=== PATIENT | female | born 1975 | race Caucasian/White ===

== ENCOUNTER → 2019-09-05 10:10 | Outpatient (BNVA) | payer OTHER, SELFPAY | PROVIDERS: Family Provider Family Medicine; PCP Family Medicine; Visit Provider Nurse Practitioner Women's Health | DX: R87.610 Atypical squamous cells of undetermined significance on cytologic smear of cervix (ASC-US) (principal); R87.810 Cervical high risk human papillomavirus (HPV) DNA test positive; Z01.419 Encounter for gynecological examination (general) (routine) without abnormal findings | CPT/HCPCS: 88175 ==

== ENCOUNTER → 2019-10-16 14:00 | Outpatient (BNVA) | payer OTHER, SELFPAY | PROVIDERS: Family Provider Family Medicine; PCP Family Medicine; Visit Provider Obstetrics & Gynecology | DX: R87.610 Atypical squamous cells of undetermined significance on cytologic smear of cervix (ASC-US) (principal); R87.810 Cervical high risk human papillomavirus (HPV) DNA test positive | CPT/HCPCS: 81025; 88305 ==

== ENCOUNTER → 2019-12-22 09:19 | Outpatient (BNVA) | payer OTHER, SELFPAY | PROVIDERS: Family Provider Family Medicine; PCP Family Medicine; Visit Provider Nurse Practitioner Family | DX: R30.0 Dysuria (principal) | CPT/HCPCS: 81000 ==

== ENCOUNTER 2020-06-25 02:08 | Emergency (ER) | payer OTHER, SELFPAY ==
[2020-06-25] VITALS (11 sets, daily range): BP systolic 97–123; BP diastolic 56–76; PULSE 66–86; RESP 15–18; TEMP 36.6; O2SAT 95–99; BMI 36.8
--- NOTE | 2020-06-25 02:30 | CTR_ITS ---
PROCEDURE INFORMATION: Exam: CT Head Without Contrast Exam date and time: 06/25/2020 2:47 AM Age: 44 years old Clinical indication: Injury or trauma; Blunt trauma (contusions or hematomas); Patient HX: Syncope with fall. Epistaxis. Patient is unsure of what she hit her head on. ; Additional info: Loc, fall, nasal injury TECHNIQUE: Imaging protocol: Computed tomography of the head without contrast. Radiation optimization: All CT scans at this facility use at least one of these dose optimization techniques: automated exposure control; mA and/or kV adjustment per patient size (includes targeted exams where dose is matched to clinical indication); or iterative reconstruction. COMPARISON: No relevant prior studies available. RADIATION DOSE METRICS: Total DLP (mGy-cm): 769.93 FINDINGS: Brain: No acute intracranial hemorrhage or mass effect. No definite acute infarct by CT. MRI could be more sensitive/specific for detection, as clinically directed. Cerebral ventricles: Ventricle size is normal for age. Bones/joints: No definite acute skull fracture. Paranasal sinuses: Included paranasal sinuses are essentially clear. Mastoid air cells: No significant acute finding. CT/CT head wo con* [id number] IMPRESSION: 1. No acute intracranial hemorrhage or mass effect. 2. No definite acute infarct by CT, see above. 3. Other findings discussed above. Radiation Dose CTDIVOL = (mGy): DLP = 769.93 (mGy-cm)
--- NOTE | 2020-06-25 02:30 | ECG_ITS ---
[facility] Test Date: 2020-06-25 Pat Name: Eugenia Land Department: Room: Gender: Female Reception Manager: : 1975 Requested By: Court Nogueira Order Number: [id number] Alfonzo MD: George Edwards M.D. Measurements Intervals [place] Rate: 85 P: 8 VT: 160 QRS: 56 QRSD: 94 T: 58 QT: 310 QTc: 370 Interpretive Statements SINUS RHYTHM NONSPECIFIC T-WAVE ABNORMALITY No previous ECG available for comparison Electronically Signed On 06-25-2020 19:15:13 CDT by George Edwards M.D. [id number] f
--- NOTE | 2020-06-25 02:33 | CTR_ITS ---
PROCEDURE INFORMATION: Exam: CT Cervical Spine Without Contrast Exam date and time: 06/25/2020 2:47 AM Age: 44 years old Clinical indication: Injury or trauma; Blunt trauma; Patient HX: Syncope with fall. Epistaxis. Patient is unsure of what she hit her head on. ; Additional info: Fall, neck pain TECHNIQUE: Imaging protocol: Computed tomography images of the cervical spine without contrast. Radiation optimization: All CT scans at this facility use at least one of these dose optimization techniques: automated exposure control; mA and/or kV adjustment per patient size (includes targeted exams where dose is matched to clinical indication); or iterative reconstruction. COMPARISON: No relevant prior studies available. RADIATION DOSE METRICS: Total DLP (mGy-cm): 659.7 FINDINGS: Bones/joints: On axial CT images, no definite acute fracture is visible. Sagittal and coronal reconstructions show no acute fracture or subluxation. Moderate to severe facet joint arthritis at several levels. Discs/Spinal canal/Neural foramina: No definite/significant disc herniation by CT, MRI could be more sensitive if clinically indicated. Lungs: No significant acute finding in the upper lungs. CT/CT cervical spin wo con* [id number] IMPRESSION: 1. No definite acute fracture or subluxation by CT. 2. Other findings discussed above. Radiation Dose CTDIVOL = (mGy): DLP = 659.7 (mGy-cm)
--- NOTE | 2020-06-25 02:40 | W.ED.SYNCOPE ---
HPI - Syncope General: Chief Complaint: Syncope Stated Complaint: syncope, hit head Time Seen by Provider: 06/25/20 02:09 Source: patient Mode of arrival: EMS Limitations: no limitations History of Present Illness: HPI narrative: 44-year-old female woke up suddenly and of the night, with nausea and sweats, went on to have 2 episodes of profuse vomiting and diarrhea. After the second episode she became very weak and dizzy, and passed out in the bathroom. She woke up with a bloody nose, not sure if she had hit her head or face on the bathtub. Currently she is get a headache and some neck pain. She has been having some stomachache and nausea after eating intermittently for several weeks now, but not to this extent. No sick contacts. Did not eat anything unusual last night. Currently she is got mild diffuse abdominal pain, especially over her upper abdomen. No dysuria. complaint: loss of consciousness Onset (ago): hour(s) Prodromal symptoms: lightheaded, diaphoresis and nausea/vomiting Context: other (After second episode of vomiting and diarrhea) Associated symptoms: Reports abdominal pain, headache(s), lightheadedness and nausea; Deny chest pain Review of Systems General: Reports: 10 or more systems reviewed and unremarkable except in HPI and below Const: Reports: chills and diaphoresis Eyes: Denies: change in vision ENMT: Denies: throat pain or odynophagia Card: Reports: lightheadedness and syncope; Denies: chest pain, palpitations or irregular heart rhythm Resp: Denies: dyspnea, productive cough or pain on inspiration GI: Reports: abdominal pain, nausea, vomiting, diarrhea and GI cramping : Denies: difficulty voiding, dysuria or urinary frequency Musc: Reports: neck pain; Denies: extremity pain, extremity swelling or joint pain Skin/Breast: Denies: rash, pruritus or erythema Neuro: Reports: headache(s); Denies: numbness in extremities or weakness in extremities Endo: Denies: polyuria, polydipsia or tired all the time Mark/Lymph: Denies: easy bruising or easy bleeding All/Imm: Denies: urticaria or throat swelling PFS ED PFSH: Medical History (Updated 06/25/20 @ 06:[address] Nogueira MD) No pertinent past medical history neghx: htn,dm,thyroid,dvt/pe Surgical History H/O section (2003) H/O hernia repair (2016) left inguinal H/O oral surgery (1998) Family History Family/Other Diabetes Maternal great aunt Thyroid cancer Maternal great aunt Heart disease Paternal uncle Mother Hypertension Father Hypertension Heart disease Grandmother Hypertension Maternal grandmother Paternal grandmother Grandfather Hypertension Paternal grandfather Maternal grandfather Heart disease Paternal grandfather Social History Additional social history: - Tobacco use: daily Alcohol use:denies Drug use:denies Female Reproductive History: Date of last menstrual period: 05/27/20 Physical Exam Const: COMMON NORMALS: patient oriented x3 and alert GENERAL APPEARANCE: cooperative, well developed, ill appearing and well hydrated; not in distress, not lethargic, not frail appearing and not diaphoretic ORIENTATION/CONSCIOUSNESS: Yes oriented to person and Yes oriented to place; not lethargic HENMT: FACE & SINUS: face symmetric NOSE: Normal septum present, Epistaxis present (dried blood in b/l nares) and Other nasal findings present (mild bruising over nasal bridge); no Nasal discharge present Eye: COMMON NORMALS: Equal, round and reactive pupils present, EOMs intact bilaterally, conjunctivae normal and no scleral icterus CONJUNCTIVA: Yes conjunctivae normal PUPIL: Yes Equal, round and reactive pupils present Neck/C-Spine: CERVICAL SPINE: No cervical ROM abnormal and Yes Paracervical muscle tenderness Resp: COMMON NORMALS: normal respiratory effort, No retractions and clear to auscultation bilaterally EFFORT & INSPECTION: Yes able to speak in complete sentences, No labored and No Actively coughing AUSCULTATION: clear to auscultation bilaterally Cardio: COMMON NORMALS: regular rate, regular rhythm, S1 normal heart sound present and S2 normal heart sound present RATE: regular rate RHYTHM: regular rhythm HEART SOUNDS: S1 normal heart sound present and S2 normal heart sound present GI: COMMON NORMALS: Soft to palpation INSPECTION: Yes normal to inspection AUSCULTATION: Yes Hyperactive bowel sounds present PALPATION: Yes Soft to palpation, Yes Tenderness to palpation present (GI) (epigastric) Details: LUQ and RUQ, No Splenomegaly present, No Hernia present and No Pulsatile mass present : COMMON NORMALS: Yes no CVA tenderness BLADDER/KIDNEY EXAM: Yes no CVA tenderness EXTERNAL FEMALE EXAM: No Hernia present Back/Pelvis: COMMON NORMALS: no CVA tenderness and thoracic and lumbar spine normal to inspection Neuro: COMMON NORMALS: patient oriented x3, CN's II-XII intact bilaterally, moves all extremities and no focal motor deficits SENSORIUM/ORIENTATION: Yes alert, Yes oriented to person, Yes oriented to place and No lethargic Skin: COMMON NORMALS: no rashes or lesions noted, no wounds, turgor normal, no jaundice and no petechiae GENERAL SKIN EXAM: no rashes or lesions noted, turgor normal and pallor Course Vital Signs: Vital signs: Vital Signs Temperature 97.9 F 06/25/20 02:13 Pulse Rate 72 06/25/20 06:53 Respiratory Rate 18 06/25/20 06:53 Blood Pressure 97/63 06/25/20 06:53 Pulse Oximetry 98 06/25/20 06:53 MDM - Syncope MDM Narrative: Medical decision making narrative: 44-year-old female had acute onset vomiting and diarrhea in the middle of the night, passed out in the bathroom after the second episode. CT head and C-spine negative for any acute injury Diarrheal disease/enteritis on CT abdomen pelvis, otherwise no acute inflammatory process. No acute UTI. Lactic acid normal. Tolerating p.o. liquids. Prescribed Levsin and Zofran ODT to take as needed Strict warnings to return immediately to the ER if she develop worsening pain, fever, or if she was unable to keep down liquids. Lab Data: Labs: Lab Results 06/25/20 06/25/20 06/25/20 Range/Units 02:38 02:38 03:58 WBC 16.8 H (4.0-10.0) 10^3/ uL RBC 4.41 (4.1-5.3) 10^6/u L Hgb 13.8 (11.5-15.3) g/dL Hct 42.2 (37.0-47.0) % MCV 95.7 (81-99) fL MCH 31.3 (28.0-34.0) pg MCHC 32.7 (30.0-36.0) g/dL RDW 11.9 L (12.1-15.1) % Plt Count 229 (130-400) 10^3/c mm MPV 9.9 (7.4-10.4) fL Neut % (Auto) 86.0 % Lymph % (Auto) 5.6 % [place] % (Auto) 7.2 % Eos % (Auto) 0.4 % Baso % (Auto) 0.5 % Neut # (Auto) 14.47 H (1.8-7.7) 10^3/u L Lymph # (Auto) 1.0 (0.8-4.8) 10^3/u L [place] # (Auto) 1.2 H (0.2-0.9) 10^3/u L Eos # (Auto) 0.1 (0.0-0.8) 10^3/u L Baso # (Auto) 0.1 (0.0-0.1) 10^3/u L Nucleated RBC % (a uto) 0 % Nucleated RBCs # 0.0 /100WBC Sodium 140 (136-145) mmol/L Potassium 3.9 (3.5-5.1) mmol/L Chloride 107 (98-107) mmol/L Carbon Dioxide 24 (22-29) mmol/L Anion Gap 12.9 (5-19) BUN 16 (6-20) mg/dL Creatinine 0.6 (0.5-0.9) mg/dL GFR Calculation 108.1 (90-130) mL/min Glucose 112 (65-115) mg/dL Calculated Osmolal ity 292 (285-295) mOsm/k g Lactate (0.5-2.2) mmol/L Calcium 8.3 L (8.5-10.5) mg/dL Total Bilirubin 0.3 (0.15-1.2) mg/dL AST 17 (0-32) U/L ALT 17 (0-33) U/L Alkaline Phosphata se 74 (35-105) IU/L C-Reactive Protein (0.0-4.9) mg/L Total Protein 6.4 L (6.6-8.7) g/dL Albumin 3.8 (3.5-5.2) g/dL Globulin 2.6 (1.3-4.6) g/dL Lipase 30 (13-60) U/L Urine Color Yellow (Yellow) Urine Appearance Sl hazy (CLEAR) Urine pH 5 (5-7) Ur Specific Gravit y 1.010 (1.005-1.030) Urine Protein Neg (Negative) Urine Glucose (UA) Norm (Normal) Urine Ketones Negative (Negative) Urine Blood 2+ H (Negative) Urine Nitrate Negative (Negative) Urine Bilirubin Neg (Negative) Urine Urobilinogen Norm (Negative) mg/dL Ur Leukocyte Nupru ase Negative (Negative) Urine RBC 5-10 H (0-2) /hpf Urine WBC 0-4 H (0-5) /hpf Ur Squamous Epith Cells 5-10 H (0-5) /hpf Amorphous Sediment Not Reportable Urine Bacteria 1+ H (NONE) /hpf Urine Mucus 1+ /hpf 06/25/20 06/25/20 Range/Units 05:42 05:42 WBC (4.0-10.0) 10^3/ uL RBC (4.1-5.3) 10^6/u L Hgb (11.5-15.3) g/dL Hct (37.0-47.0) % MCV (81-99) fL MCH (28.0-34.0) pg MCHC (30.0-36.0) g/dL RDW (12.1-15.1) % Plt Count (130-400) 10^3/c mm MPV (7.4-10.4) fL Neut % (Auto) % Lymph % (Auto) % [place] % (Auto) % Eos % (Auto) % Baso % (Auto) % Neut # (Auto) (1.8-7.7) 10^3/u L Lymph # (Auto) (0.8-4.8) 10^3/u L [place] # (Auto) (0.2-0.9) 10^3/u L Eos # (Auto) (0.0-0.8) 10^3/u L Baso # (Auto) (0.0-0.1) 10^3/u L Nucleated RBC % (a uto) % Nucleated RBCs # /100WBC Sodium (136-145) mmol/L Potassium (3.5-5.1) mmol/L Chloride (98-107) mmol/L Carbon Dioxide (22-29) mmol/L Anion Gap (5-19) BUN (6-20) mg/dL Creatinine (0.5-0.9) mg/dL GFR Calculation (90-130) mL/min Glucose (65-115) mg/dL Calculated Osmolal ity (285-295) mOsm/k g Lactate 0.8 (0.5-2.2) mmol/L Calcium (8.5-10.5) mg/dL Total Bilirubin (0.15-1.2) mg/dL AST (0-32) U/L ALT (0-33) U/L Alkaline Phosphata se (35-105) IU/L C-Reactive Protein 14.3 H (0.0-4.9) mg/L Total Protein (6.6-8.7) g/dL Albumin (3.5-5.2) g/dL Globulin (1.3-4.6) g/dL Lipase (13-60) U/L Urine Color (Yellow) Urine Appearance (CLEAR) Urine pH (5-7) Ur Specific Gravit y (1.005-1.030) Urine Protein (Negative) Urine Glucose (UA) (Normal) Urine Ketones (Negative) Urine Blood (Negative) Urine Nitrate (Negative) Urine Bilirubin (Negative) Urine Urobilinogen (Negative) mg/dL Ur Leukocyte Nupur ase (Negative) Urine RBC (0-2) /hpf Urine WBC (0-5) /hpf Ur Squamous Epith Cells (0-5) /hpf Amorphous Sediment Urine Bacteria (NONE) /hpf Urine Mucus /hpf Discharge Plan Discharge Patient Disposition: Home Clinical Impression: Vasovagal syncope, Gastroenteritis Concussion Qualifiers: Encounter type: initial encounter Loss of consciousness presence/duration: with LOC of 30 min or less Qualified Code(s): S06.0X1A - Concussion with loss of consciousness of 30 minutes or less, initial encounter Condition: Stable Prescriptions: New ondansetron 8 mg tablet,disintegrating 8 mg PO BID PRN (Reason: nausea and vomiting) 3 Days Qty: 20 RF: 0 Levsin 0.125 mg tablet 0.125 mg PO Q6H PRN (Reason: cramping, pain) Qty: 20 RF: 0 No Action povidone-iodine [Betadine Swabsticks] 10 % swab 1 applic TOPICAL ONCE Qty: 150 RF: 0 fexofenadine 30 mg tablet 60 mg PO BID RF: 0 sulfamethoxazole-trimethoprim [Bactrim DS] 800-160 mg tablet 1 tab PO BID 7 Days Qty: 14 RF: 0 fluconazole [Diflucan] 150 mg tablet 150 mg PO ONCE Qty: 1 RF: 0 fluticasone propionate 50 mcg/actuation spray,suspension 1 spray INTRANASAL DAILY RF: 0 Discharge Orders: Discharge ED (Routine); Ordered 06/25/20 Ordered By: Court Nogueira Referrals: Leoncio Palomo MD [Primary Care Provider] - Discharge Diet: Advance as tolerated Discharge Activity: Increase activity as tolerated Patient Instructions: Concussion/Head Injury - Adult, Gastroenteritis (ED) Activity Restrictions/Additional Instructions: Rest, drink plenty of fluids. Followup with your PCP in the next 2-3 days for recheck. 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
[2020-06-25] MEDS: ondansetron 2 mg/ML SDV 2 mL 4 MG IVP (02:45)
[2020-06-25] MEDS: sodium chloride 0.9% 1,000 ML 999 ML IV ×2 (02:45→06:13)
[2020-06-25 02:50] LABS: Basophils # 0.1 10^3/uL (0.0-0.1); Basophils % 0.5 %; Eosinophils # 0.1 10^3/uL (0.0-0.8); Eosinophils % 0.4 %; Hematocrit 42.2 % (37.0-47.0); Hemoglobin 13.8 g/dL (11.5-15.3); Lymphocytes % 5.6 %; Mean Corpuscular HGB Conc 32.7 g/dL (30.0-36.0); Mean Corpuscular Hemoglobin 31.3 pg (28.0-34.0); Mean Corpuscular Volume 95.7 fL (81-99); Mean Platelet Volume 9.9 fL (7.4-10.4); Monocytes # 1.2 10^3/uL (0.2-0.9); Monocytes % 7.2 %; Neutrophils # 14.47 10^3/uL (1.8-7.7); Nucleated Red Blood Cells % 0 %; Platelet Count 229 10^3/cmm (130-400); Red Blood Count 4.41 10^6/uL (4.1-5.3); Red Cell Distribution Width 11.9 % (12.1-15.1); White Blood Count 16.8 10^3/uL (4.0-10.0)
[2020-06-25 03:04] LABS: Alanine Aminotransferase 17 U/L (0-33); Albumin Level 3.8 g/dL (3.5-5.2); Alkaline Phosphatase 74 IU/L (35-105); Anion Gap 12.9 (5-19); Aspartate Amino Transferase 17 U/L (0-32); Blood Urea Nitrogen 16 mg/dL (6-20); Calcium 8.3 mg/dL (8.5-10.5); Carbon Dioxide 24 mmol/L (22-29); Chloride 107 mmol/L (98-107); Globulin 2.6 g/dL (1.3-4.6); Glomerular Filtration Rate 108.1 mL/min (90-130); Glucose 112 mg/dL (65-115); Lipase 30 U/L (13-60); Osmolality Calculated 292 mOsm/kg (285-295); Potassium 3.9 mmol/L (3.5-5.1); Sodium 140 mmol/L (136-145); Total Bilirubin 0.3 mg/dL (0.15-1.2); Total Protein 6.4 g/dL (6.6-8.7)
[2020-06-25 04:27] LABS: Add Urine Microscopic? YES; Bilirubin Urine Neg (Negative); Blood Urine 2+ (Negative); Glucose Urine UA Norm (Normal); Ketones Urine Negative (Negative); Leukocyte Esterase Urine Negative (Negative); Nitrate Urine Negative (Negative); Protein Urine Neg (Negative); Urine Appearance SL Hazy (CLEAR); Urine Color Yellow (Yellow); Urobilinogen Urine Norm (Negative); pH Urine 5 (5-7)
[2020-06-25 04:29] LABS: Bacteria Urine 1+ /hpf; WBC Urine 0-4 /hpf (0-5)
[2020-06-25 04:30] LABS: Add Urine Culture? No; Mucus Urine 1+ /hpf
--- NOTE | 2020-06-25 04:58 | CTR_ITS ---
PROCEDURE INFORMATION: Exam: CT Abdomen And Pelvis With Contrast Exam date and time: 06/25/2020 5:03 AM Age: 44 years old Clinical indication: Nausea and vomiting; Abdominal pain; Generalized; Prior surgery; Surgery type: Csection. Hernia repair. ; Patient HX: Abd pain with n/v. ; Additional info: Abd pain, n/v TECHNIQUE: Imaging protocol: Computed tomography of the abdomen and pelvis with contrast. Radiation optimization: All CT scans at this facility use at least one of these dose optimization techniques: automated exposure control; mA and/or kV adjustment per patient size (includes targeted exams where dose is matched to clinical indication); or iterative reconstruction. Contrast material: OMNI 300; Contrast volume: 95 ml; Contrast route: INTRAVENOUS (IV); COMPARISON: CT Abdomen/Pelvis Renal [id number] 08/24/2018 11:49 PM RADIATION DOSE METRICS: Total DLP (mGy-cm): 1748.19 FINDINGS: Liver: Normal. No mass. Gallbladder and bile ducts: No calcified stones. No pericholecystic inflammatory changes. No ductal dilation. Pancreas: Normal. No ductal dilation. Spleen: Calcified splenic granulomas. Adrenal glands: Normal. No mass. Kidneys and ureters: Normal. No hydronephrosis. Stomach and bowel: Borderline wall thickening of a few segments of small bowel. Liquid stool throughout most of the colon. Appendix: Normal appendix. Intraperitoneal space: No free air. No significant fluid collection. Vasculature: No abdominal aortic aneurysm. Lymph nodes: No enlarged lymph nodes. Urinary bladder: Unremarkable as visualized. Reproductive: Unremarkable as visualized. Bones/joints: Unremarkable. No acute fracture. Soft tissues: Unremarkable. CT/CT abdomen pelvis w con* [id number] IMPRESSION: Liquid stool throughout most of the colon, possibly due to enteritis. Radiation Dose CTDIVOL = (mGy): DLP = 1748.19 (mGy-cm)
--- NOTE | 2020-06-25 05:04 | PC.NURSE ---
patient given water by nurse per [facility] orders
[2020-06-25] MEDS: iohexol 300 mg/mL 100 mL Btl IV (05:17)
[2020-06-25 06:06] LABS: C Reactive Protein 14.3 mg/L (0.0-4.9); Lactate (Lactic Acid level) 0.8 mmol/L (0.5-2.2)
[2020-06-25] MEDS: cefTRIAXone 1,000 MG in sodium chloride 0.9% (plus) 50 ML 100 MG IV (06:13)
[2020-06-25] MEDS: ketorolac 30 mg/mL INJ 15 MG IVP (06:33)
== END 2020-06-25 07:14 | disposition home or self-care (01) ==
PROVIDERS: Emergency Provider Family Medicine; PCP Family Medicine
DX: R55 Syncope and collapse (principal); K52.9 Noninfective gastroenteritis and colitis, unspecified; S06.0X1A Concussion with loss of consciousness of 30 minutes or less, initial encounter; W19.XXXA Unspecified fall, initial encounter
CPT/HCPCS: 70450; 72125; 74177; 80053; 81001; 83605; 83690; 85025; 86140; 93005; 96361; 96365; 96375; 99284; 99291; J0696; J1885; J2405; J7030; Q9967

== ENCOUNTER 2020-08-06 08:43 | Outpatient (CLI) | payer OTHER, SELFPAY ==
--- NOTE | 2020-08-06 08:30 | MM_ITS ---
WS: [id number] Bilateral screening digital mammogram, 08/06/2020 Clinical Data: Z12.39 - Encounter for other screening for malignant neop... Comparison: 10/07/2018, 09/17/2018. Findings: The breast parenchymal pattern shows fat replacement. No spiculated masses or clustered calcification s are seen. There are no secondary signs of carcinoma. There are lymph nodes in the left axilla. Ther e is a mole marker on the left breast. The 2 oval densities in the lateral aspect of the right breast have not changed. MM/[place] [id number] Impression: 1. Negative bilateral mammogram unchanged. 2. Recommend annual screening mammograms. BIRADS: 1-Negative FOLLOW UP: 1 Year Follow-up The CAD repairer and checker was used.
== END 2020-08-06 08:44 | disposition home or self-care (01) ==
LOC: RADSHAW 08:45
PROVIDERS: PCP Family Medicine; Visit Provider Obstetrics & Gynecology
DX: Z12.31 Encounter for screening mammogram for malignant neoplasm of breast (principal)
CPT/HCPCS: 77067

== ENCOUNTER → 2020-08-24 15:00 | Outpatient (BNVA) | payer OTHER, SELFPAY | PROVIDERS: PCP Family Medicine; Visit Provider Obstetrics & Gynecology | DX: N92.6 Irregular menstruation, unspecified (principal) | CPT/HCPCS: 81000; 83001; 84443; 84702; 85025 ==

== ENCOUNTER → 2020-08-25 08:42 | Outpatient (BNVA) | payer OTHER, SELFPAY | PROVIDERS: PCP Family Medicine; Visit Provider Obstetrics & Gynecology | DX: N92.6 Irregular menstruation, unspecified (principal); N85.2 Hypertrophy of uterus | CPT/HCPCS: 76830 ==

== ENCOUNTER → 2020-10-12 07:30 | Outpatient (BNVA) | payer OTHER, SELFPAY | PROVIDERS: PCP Family Medicine; Visit Provider Nurse Practitioner Family | DX: N39.0 Urinary tract infection, site not specified (principal); B37.3 Candidiasis of vulva and vagina; R30.9 Painful micturition, unspecified | CPT/HCPCS: 81000 ==

== ENCOUNTER → 2021-04-11 16:27 | Outpatient (BNVA) | payer OTHER, SELFPAY | PROVIDERS: PCP Family Medicine; Visit Provider Nurse Practitioner | DX: U07.1 COVID-19 (principal) | CPT/HCPCS: 71046 ==

== ENCOUNTER 2021-04-18 09:55 | Outpatient (CLI) | payer OTHER, SELFPAY ==
[2021-04-18 10:30] LABS: D Dimer 0.47 ug/mIFEU (0-0.59)
[2021-04-18 10:53] LABS: C Reactive Protein 9.3 mg/L (0.0-4.9); NT Pro B Type Natriuretic Pept 14 pg/mL (0-125)
== END 2021-04-18 09:56 | disposition home or self-care (01) ==
PROVIDERS: PCP Family Medicine; Visit Provider Family Medicine
DX: R06.09 Other forms of dyspnea (principal)
CPT/HCPCS: 83880; 85378; 86140

== ENCOUNTER 2022-05-08 08:14 | Emergency (ER) | payer OTHER, SELFPAY ==
[2022-05-08] VITALS (7 sets, daily range): BP systolic 105–162; BP diastolic 47–81; PULSE 76–100; RESP 16–18; TEMP 36.6; O2SAT 96–97
--- NOTE | 2022-05-08 08:21 | ED_ITS ---
HPI - Abdominal Pain General: Chief Complaint: Abdominal Pain Stated Complaint: law abd pain Time Seen by Provider: 05/08/22 08:21 Source: patient Mode of arrival: ambulatory History of Present Illness: 46-year-old female comes in complaining of lower abdominal pain with cramping its been going on for approximately last 10 to 12 days. She denies any dysuria urgency or frequency. She has had problems with ovarian cyst in the past. She has not had any diarrhea no hematochezia melena hematemesis or cough ground emesis. MD elicited complaint: abdominal pain Onset (ago): day(s) (~10) Pain Consistency: intermittent Location: Pelvis Severity: moderate Quality: cramping Radiation: none Exacerbating factors: nothing Relieving factors: nothing Associated Symptoms: Reports GI cramping; Denies anorexia, belching, bloating, change in bowel habits, change in stool character, chills, coffee ground emesis, constipation, diarrhea, dyspepsia, dysuria, excessive flatus, fever(s), heartburn, hematochezia, hematuria, hematemesis, fecal incontinence, loose stools, melena, nausea, poor appetite, syncope and vomiting Review of Systems Const: Denies: fever(s) or chills ENMT: Denies: throat pain, ear or mastoid pain, nasal discharge or nasal congestion Card: Denies: syncope Resp: Denies: dyspnea, productive cough or non-productive cough GI: Reports: abdominal pain and GI cramping; Denies: nausea, vomiting, hematemesis, coffee ground emesis, heartburn, gustavo rrhea, constipation, bloating, belching, excessive flatus, fecal incontinence, change in bowel habits, change in stool character, hematochezia or melena : Denies: dysuria, urinary frequency, urinary urgency or hematuria Skin/Breast: Denies: rash or pruritus PFSH ED PFSH: Medical History No pertinent past medical history neghx: htn,dm,thyroid,dvt/pe Surgical History H/O section (2003) H/O hernia repair (2016) left inguinal H/O oral surgery (1998) Family History Family/Other Diabetes Maternal great aunt Thyroid cancer Maternal great aunt Heart disease Paternal uncle Mother Hypertension Father Hypertension Heart disease Cancer colon and lung Grandmother Hypertension Maternal grandmother Paternal grandmother Grandfather Hypertension Paternal grandfather Maternal grandfather Heart disease Paternal grandfather Other CAD (coronary artery disease) Dementia Hyperlipidemia Denies family history of Clotting disorder Psychiatric illness Chronic kidney disease (CKD) Anesthesia complication Bleeding disorder Lung disease Stroke Social History Smoking and tobacco status: current every day smoker cigarettes Second hand smoke exposure: No Alcohol intake: current Alcohol intake frequency: holidays/special occasions only Desire information about alcohol rehabilitation?: No Lives independently: Yes Household members: spouse Marital status: Number of children: 1 service: No Current occupational status: employed Current occupation: [employer] nurse Current gender identity: Female Special lennox needs: No Agree to transfusion: Yes Additional social history: - Tobacco use: smokes 1 pack per day Alcohol use:denies Drug use:denies Physical Exam Const: GENERAL APPEARANCE: cooperative and comfortable ORIENTATION/CONSCIOUSNESS: Yes awake, Yes oriented to person, Yes oriented to place and Yes oriented to time HENMT: COMMON NORMALS: normocephalic, atraumatic and hearing grossly normal bilaterally HEAD & SCALP: normocephalic and atraumatic Resp: COMMON NORMALS: normal respiratory effort, No retractions, No use of accessory muscles and clear to auscultation bilaterally AUSCULTATION: clear to auscultation bilaterally Cardio: COMMON NORMALS: regular rate, regular rhythm and No murmurs present (Cardio) RATE: regular rate RHYTHM: regular rhythm GI: COMMON NORMALS: No hepatosplenomegaly present AUSCULTATION: Yes normo active bowel sounds PALPATION: Yes Tenderness to palpation present (GI) D etails: LLQ and RLQ, No Guarding due to palpation present (GI) and Yes No hepatosplenomegaly present Extremity: COMMON NORMALS: normal to inspection, capillary refill normal, no clubbing, cyanosis or edema, no calf tenderness and no pedal edema Neuro: SENSORIUM/ORIENTATION: Yes oriented to person, Yes oriented to place and Yes oriented to time Skin: COMMON NORMALS: no rashes or lesions noted GENERAL SKIN EXAM: no rashes or lesions noted Course Vital Signs: Vital signs: Vital Signs Temperature 97.9 F 05/08/22 08:22 Pulse Rate 85 05/08/22 12:49 Respiratory Rate 18 05/08/22 08:59 Blood Pressure 114/68 05/08/22 12:49 Pulse Oximetry 97 05/08/22 12:49 Oxygen Delivery Me thod 05/08/22 12:48 MDM - Abdominal Pain Medical Decision Making Labs and imaging reviewed. No significant lab findings while mildly elevated white count but does not correlate with any findings on the CT or ultrasound of the pelvis is not able to visualize the left ovary but is otherwise unremarkable I discussed with Dr. Hernandez she has not seen inflammatory reactions in there. Discussed with the patient we will discharge her home use NSAIDs if pain persist follow-up with gynecology. Medical Records I reviewed the patient's medical records. Lab Data I reviewed the patient's lab results. 05/08/22 08:55 05/08/22 08:55 Labs/Radiology: Radiology Impressions Abdomen/Pelvis CT 05/08/22 08:43 IMPRESSION: 1. No acute abdominal or pelvic abnormalities are identified. 2. Small amount of free fluid in the pelvis is probably physiologic. 3. Normal appendix. 4. No renal obstruction. 5. No diverticular disease identified. Transvaginal US 05/08/22 11:15 IMPRESSION: 1. Normal uterus and endometrium. 2. LEFT ovary is not visualized. 3. Physiologic free fluid in the cul-de-sac. Notified Paul Macdonald DO at 05/08/2022 12:12 PM. Laboratory Results WBC 12.6 10^3/uL (4.0-10.0) H 05/08/22 08:55 RBC 4.53 10^6/uL (4.1-5.3) 05/08/22 08:55 Hgb 14.2 g/dL (11.5-15.3) 05/08/22 08:55 Hct 42.9 % (37.0-47.0) 05/08/22 08:55 MCV 94.7 fl (81-99) 05/08/22 08:55 MCH 31.3 pg (28.0-34.0) 05/08/22 08:55 MCHC 33.1 g/dL (30.0-36.0) 05/08/22 08:55 RDW 12.9 % (12.1-15.1) 05/08/22 08:55 Plt Count 312 10^3/cmm (130-400) 05/08/22 08:55 MPV 9.2 fL (7.4-10.4) 05/08/22 08:55 Neut % (Auto) 78.9 % 05/08/22 08:55 Lymph % (Auto) 15.7 % 05/08/22 08:55 [place] % (Auto) 4.2 % 05/08/22 08:55 Eos % (Auto) 0.3 % 05/08/22 08:55 Baso % (Auto) 0.4 % 05/08/22 08:55 Neut # (Auto) 9.93 10^3/uL (1.8-7.7) H 05/08/22 08:55 Lymph # (Auto) 2.0 10^3/uL (0.8-4.8) 05/08/22 08:55 [place] # (Auto) 0.5 10^3/uL (0.2-0.9) 05/08/22 08:55 Eos # (Auto) 0.0 10^3/uL (0.0-0.8) 05/08/22 08:55 Baso # (Auto) 0.1 10^3/uL (0.0-0.1) 05/08/22 08:55 Nucleated RBC % (auto) 0 % 05/08/22 08:55 Nucleated RBCs # 0.0 /100WBC 05/08/22 08:55 Sodium 138 mmol/L (136-145) 05/08/22 08:55 Potassium 4.0 mmol/L (3.5-5.1) 05/08/22 08:55 Chloride 103 mmol/L (98-107) 05/08/22 08:55 Carbon Dioxide 22 mmol/L (22-29) 05/08/22 08:55 Anion Gap 17.0 (5-19) 05/08/22 08:55 BUN 13 mg/dL (6-20) 05/08/22 08:55 Creatinine 0.7 mg/dL (0.5-0.9) 05/08/22 08:55 GFR Calculation 89.7 mL/min (90-130) L 05/08/22 08:55 Glucose 99 mg/dL (65-115) 05/08/22 08:55 Calculated Osmolality 286 mOsm/kg (285-295) 05/08/22 08:55 Calcium 9.2 mg/dL (8.5-10.5) 05/08/22 08:55 Total Bilirubin 0.2 mg/dL (0.15-1.2) 05/08/22 08:55 AST 16 U/L (0-32) 05/08/22 08:55 ALT 13 U/L (0-33) 05/08/22 08:55 Alkaline Phosphatase 90 U/L (35-105) 05/08/22 08:55 Total Protein 7.3 g/dL (6.6-8.7) 05/08/22 08:55 Albumin 4.1 g/dL (3.5-5.2) 05/08/22 08:55 Globulin 3.2 g/dL (1.3-4.6) 05/08/22 08:55 Lipase 24 U/L (13-60) 05/08/22 08:55 Urine Color Straw (Yellow) 05/08/22 08:35 Urine Appearance Clear (CLEAR) 05/08/22 08:35 Urine pH 6 (5-7) 05/08/22 08:35 Ur Specific [place] 1.010 (1.005-1.030) 05/08/22 08:35 Urine Protein Neg (Negative) 05/08/22 08:35 Urine Glucose (UA) Norm (Normal) 05/08/22 08:35 Urine Ketones Negative (Negative) 05/08/22 08:35 Urine Blood 2+ (Negative) H 05/08/22 08:35 Urine Nitrate Negative (Negative) 05/08/22 08:35 Urine Bilirubin Neg (Negative) 05/08/22 08:35 Urine Urobilinogen Norm mg/dL (Negative) 05/08/22 08:35 Ur Leukocyte Esterase Negative (Negative) 05/08/22 08:35 Urine RBC 0-4 /hpf (0-2) H 05/08/22 08:35 Urine WBC None /hpf (0-5) 05/08/22 08:35 Ur Squamous Epith Cells 0-4 /hpf (0-5) H 05/08/22 08:35 Amorphous Sediment Not Reportable 05/08/22 08:35 Urine Bacteria Trace /hpf (NONE) 05/08/22 08:35 Discharge Plan Discharge Patient Disposition: Home Clinical Impression: Pelvic pain Condition: Stable Prescriptions: New hydrocodone-acetaminophen 5-325 mg tablet 1 tab PO Q6H PRN (Reason: pain) Qty: 20 0RF ondansetron HCl 4 mg tablet 4 mg PO Q6H PRN (Reason: nausea and vomiting) Qty: 20 0RF Held Ozempic 0.25 mg or 0.5 mg(2 mg/1.5 mL) pen injector 0.25 mg SUBCUT Q7D Hold Instructions: Resume on 05/22/22. Rx Instructions: On Sunday Discharge Orders: Discharge ED (Routine); Ordered 05/08/22 Ordered By: Paul Macdonald Referrals: Leoncio Palomo MD [Primary Care Provider] - Patient Instructions: Opioid Safety, Pain Management Activity Restrictions/Additional Instructions: You are seen today for pelvic and abdominal pain. CT of the abdomen and ultrasound of the pelvis did not show a definitive source of the pain. Would recommend that you hold the Ozempic for now. Pain medications given his symptoms persist follow-up with your primary care doctor or with gynecology. Coding Level of Care Code ED [employer] for Macey Chow
--- NOTE | 2022-05-08 08:43 | CT_ITS ---
WS: [id number] CT ABDOMEN AND PELVIS NONCONTRAST HISTORY: Abdominal pain, LEFT lower quadrant pain for one week. TECHNIQUE: Imaging performed through the abdomen and pelvis. Coronal and sagittal reformats are submi tted. All CT scans at [facility] use at least one of these dose optimization techniques: auto mated exposure control; mA and/or kV adjustment per patient size (includes targeted exams where dose is matched to clinical indication); or iterative reconstruction. DLP: 886.73 mGy.cm COMPARISON: 06/25/2020 Lower thorax: Lung bases are clear. Visualized heart is normal. No hiatal hernia. Liver: Normal size liver. No mass or bile duct dilatation. Gallbladder: Normal gallbladder. Pancreas: Normal size and attenuation. Normal pancreatic duct. No pancreatitis or mass. Spleen: Normal size with granulomata. Adrenal glands: Normal. No mass. Right kidney: Normal size kidney. Nonobstructing 2 mm calcification mid kidney. No obstruction. Left kidney: Normal size kidney with no mass or hydronephrosis. Aorta: Normal abdominal aorta, no aneurysm or atherosclerosis. No free fluid, intraperitoneal air or significant lymphadenopathy. GI tract: Normal appendix. No GI tract obstruction or diverticulosis. Abdominal wall: Small umbilical hernia contains fat only. Pelvis: Normal anteverted uterus. There is a small amount of fluid within the pelvis which could be p hysiologic. Osseous structures: Mild degenerative disc disease at L5-S1. CT/CT abdomen pelvis wo con [id number] IMPRESSION: 1. No acute abdominal or pelvic abnormalities are identified. 2. Small amount of free fluid in the pelvis is probably physiologic. 3. Normal appendix. 4. No renal obstruction. 5. No diverticular disease identified.
[2022-05-08 08:54] LABS: Add Urine Microscopic? YES; Bilirubin Urine Neg (Negative); Blood Urine 2+ (Negative); Glucose Urine UA Norm (Normal); Ketones Urine Negative (Negative); Leukocyte Esterase Urine Negative (Negative); Nitrate Urine Negative (Negative); Protein Urine Neg (Negative); Urine Appearance Clear (CLEAR); Urine Color Straw (Yellow); Urobilinogen Urine Norm (Negative); pH Urine 6 (5-7)
[2022-05-08 08:55] LABS: Add Urine Culture? No; Bacteria Urine TRACE /hpf; RBC Urine 0-4 /hpf (0-2); Squamous Epithelial Cell Urine 0-4 /hpf (0-5)
[2022-05-08] MEDS: ondansetron 2 mg/ML SDV 2 mL 4 MG IVP (08:58)
[2022-05-08] MEDS: morphine 4 mg/mL SDV 1 mL IVP (08:59)
[2022-05-08] MEDS: sodium chloride 0.9% 1,000 ML 999 ML IV (09:01)
[2022-05-08 09:08] LABS: Basophils # 0.1 10^3/uL (0.0-0.1); Basophils % 0.4 %; Eosinophils % 0.3 %; Hematocrit 42.9 % (37.0-47.0); Hemoglobin 14.2 g/dL (11.5-15.3); Lymphocytes % 15.7 %; Mean Corpuscular HGB Conc 33.1 g/dL (30.0-36.0); Mean Corpuscular Hemoglobin 31.3 pg (28.0-34.0); Mean Corpuscular Volume 94.7 fl (81-99); Mean Platelet Volume 9.2 fL (7.4-10.4); Monocytes # 0.5 10^3/uL (0.2-0.9); Monocytes % 4.2 %; Neutrophils # 9.93 10^3/uL (1.8-7.7); Neutrophils % 78.9 %; Nucleated Red Blood Cells % 0 %; Platelet Count 312 10^3/cmm (130-400); Red Blood Count 4.53 10^6/uL (4.1-5.3); Red Cell Distribution Width 12.9 % (12.1-15.1); White Blood Count 12.6 10^3/uL (4.0-10.0)
[2022-05-08 09:29] LABS: Alanine Aminotransferase 13 U/L (0-33); Albumin Level 4.1 g/dL (3.5-5.2); Alkaline Phosphatase 90 U/L (35-105); Aspartate Amino Transferase 16 U/L (0-32); Blood Urea Nitrogen 13 mg/dL (6-20); Calcium 9.2 mg/dL (8.5-10.5); Carbon Dioxide 22 mmol/L (22-29); Chloride 103 mmol/L (98-107); Globulin 3.2 g/dL (1.3-4.6); Glomerular Filtration Rate 89.7 mL/min (90-130); Glucose 99 mg/dL (65-115); Lipase 24 U/L (13-60); Osmolality Calculated 286 mOsm/kg (285-295); Sodium 138 mmol/L (136-145); Total Bilirubin 0.2 mg/dL (0.15-1.2); Total Protein 7.3 g/dL (6.6-8.7)
--- NOTE | 2022-05-08 11:15 | US_ITS ---
WS: [id number] TRANSVAGINAL PELVIC ULTRASOUND HISTORY: LLQ abd pain COMPARISON: 08/25/[address] 05/08/2022. Uterus: 9.0 cm x 5.5 cm x 5.4 cm. Normal size anteverted uterus. No fibroid or mass. Small nabothian cysts. Endometrium: 0.8 cm. Normal and similar to the prior study. No increased vascularity or mass. Right ovary: 2.1 cm x 2.1 cm x 2.1 cm. Normal size and vascularity, no cystic or solid masses. Left ovary: Not visualized. Patient had significant pain while imaging the LEFT adnexa. Physiologic free fluid in the cul-de-sac. US/US transvaginal [id number] IMPRESSION: 1. Normal uterus and endometrium. 2. LEFT ovary is not visualized. 3. Physiologic free fluid in the cul-de-sac. Notified Paul Macdonald DO at 05/08/2022 12:12 PM.
== END 2022-05-08 12:51 | disposition home or self-care (01) ==
PROVIDERS: Emergency Provider Family Medicine; PCP Family Medicine
DX: R10.2 Pelvic and perineal pain (principal); F17.210 Nicotine dependence, cigarettes, uncomplicated
CPT/HCPCS: 74176; 76830; 80053; 81001; 83690; 85025; 96361; 96374; 96375; 99285; J2270; J2405; J7030

== ENCOUNTER 2022-05-31 07:55 | Outpatient (CLI) | payer OTHER, SELFPAY ==
--- NOTE | 2022-05-31 08:04 | MM_ITS ---
WS: [id number] SCREENING DIGITAL BREAST TOMOSYNTHESIS MAMMOGRAM WITH CAD HISTORY: SCREEN COMPARISON: 08/06/2020, 09/17/2018 Bilateral CC and MLO with tomosynthesis and synthetic mammography submitted. Computer aided detection analyzed. Breast composition: There are scattered areas of fibroglandular density. There is a new 5.5 mm mass i n the anterior to mid RIGHT breast just inferior and lateral to the nipple line. No additional abnorm alities. MM/[place] [id number] IMPRESSION: BI-RADS: 0-Incomplete: Need additional imaging evaluation FOLLOW UP: Need Additional Imaging Recommendation: RIGHT breast ultrasound, limited. 6-7 o'clock axis.
== END 2022-05-31 07:56 | disposition home or self-care (01) ==
PROVIDERS: PCP Family Medicine; Visit Provider Nurse Practitioner Women's Health
DX: Z12.31 Encounter for screening mammogram for malignant neoplasm of breast (principal)
CPT/HCPCS: 77063; 77067

== ENCOUNTER → 2022-06-07 11:50 | Outpatient (BNVA) | payer OTHER, SELFPAY | PROVIDERS: PCP Family Medicine; Visit Provider Nurse Practitioner Women's Health | DX: Z12.4 Encounter for screening for malignant neoplasm of cervix (principal) | CPT/HCPCS: 87624 ==

== ENCOUNTER 2022-06-16 08:08 | Outpatient (CLI) | payer OTHER, SELFPAY ==
--- NOTE | 2022-06-16 08:15 | US_ITS ---
WS: [id number] ULTRASOUND RIGHT BREAST HISTORY: Mass on screening mammogram. COMPARISON: 05/31/2022 TECHNIQUE: 2-D and Doppler. Mass seen on screening mammogram corresponds to 2 adjacent cysts at 7:00 near the area look. Cluster measures 6 x 3 x 3 mm. No solid mass. US/US breast RT limited* [id number] IMPRESSION: BI-RADS: 2-Benign FOLLOW-UP: 1 Year Follow-up
== END 2022-06-16 08:09 | disposition home or self-care (01) ==
LOC: RAD 08:14
PROVIDERS: PCP Family Medicine; Visit Provider Nurse Practitioner Women's Health
DX: R92.8 Other abnormal and inconclusive findings on diagnostic imaging of breast (principal)
CPT/HCPCS: 76642

== ENCOUNTER 2022-06-30 12:36 | Outpatient (CLI) | payer OTHER, SELFPAY ==
--- NOTE | 2022-06-30 12:30 | US_ITS ---
WS: [id number] Gallbladder and right upper quadrant ultrasound, 06/30/2022 Clinical Data: ruq pain Comparison: Right upper quadrant ultrasound, 05/21/2013 Findings: The gallbladder shows no sludge or stone. The wall measures 0.2 cm with no pericholecystic fluid. The common bile duct is 0.3 cm and there are no intrahepatic ductal abnormalities. Liver shows no cysts, masses or dilated intrahepatic ducts. The portal vein shows normal flow. The pancreas is not obscured by overlying bowel gas and no cyst, pseudocyst, or evidence of pancreati tis is noted. Right kidney measures 12.1 cm and no cyst, masses or hydronephrosis can be seen. The aorta and inferior vena cava show no vascular abnormalities. US/US gall bladder [id number] Impression: Negative right upper quadrant and gallbladder ultrasound.
== END 2022-06-30 12:37 | disposition home or self-care (01) ==
LOC: RAD 12:39
PROVIDERS: PCP Family Medicine; Visit Provider Family Medicine
DX: R10.11 Right upper quadrant pain (principal)
CPT/HCPCS: 76705; 80053; 83690; 85025

== ENCOUNTER → 2023-11-19 06:57 | Outpatient (BNVA) | payer OTHER, SELFPAY | PROVIDERS: PCP Family Medicine; Visit Provider Nurse Practitioner Family | DX: R39.9 Unspecified symptoms and signs involving the genitourinary system (principal) | CPT/HCPCS: 81000 ==

== ENCOUNTER 2023-12-18 07:38 | Outpatient (CLI) | payer OTHER, SELFPAY ==
[2023-12-18 07:55] LABS: Basophils # 0.1 10^3/uL (0.0-0.1); Basophils % 0.6 %; Eosinophils # 0.1 10^3/uL (0.0-0.8); Eosinophils % 1.3 %; Hematocrit 42.3 % (36-47); Lymphocytes # 1.9 10^3/uL (0.8-4.8); Lymphocytes % 23.2 %; Mean Corpuscular HGB Conc 33.1 g/dL (30-55); Mean Corpuscular Hemoglobin 32.6 pg (27-33); Mean Corpuscular Volume 98.4 fl (85-98); Mean Platelet Volume 9.2 fL (7.4-10.4); Monocytes # 0.5 10^3/uL (0.2-0.9); Monocytes % 6.6 %; Neutrophils # 5.54 10^3/uL (1.8-7.7); Neutrophils % 67.9 %; Nucleated Red Blood Cells % 0 %; Platelet Count 237 10^3/cmm (157-399); White Blood Count 8.16 10^3/uL (3.29-11.43)
--- NOTE | 2023-12-18 08:00 | MM_ITS ---
WS: [id number] VIEWS: MLO and CC views both breasts. 3D digital tomosynthesis is also included in this exam. Comparison made with prior exam of 09/17/2018, 05/31/2022.. Findings: There are scattered areas of fibroglandular density. No suspicious mass, tumor calcification or architectural distortion. MM/MM scr BI tomosynthesis [id number] Impression: BI-RADS: 2 - Benign FOLLOW-UP: 1 Year Follow-up This mammogram was also analyzed by the Computer Aided Detection System R2 Imag e Perianesthesia Rn.
[2023-12-18 08:22] LABS: Alanine Aminotransferase 15 U/L (0-33); Albumin Level 4.5 g/dL (3.5-5.2); Alkaline Phosphatase 80 U/L (35-105); Anion Gap 13.8 (5-19); Aspartate Amino Transferase 19 U/L (0-32); Blood Urea Nitrogen 18 mg/dL (6-20); Carbon Dioxide 26 mmol/L (22-29); Chloride 100 mmol/L (98-107); Chol HDL Ratio 4.52 mg/dL (0.0-4.40); Cholesterol 253 mg/dL (0-200); Globulin 2.9 g/dL (1.3-4.6); Glomerular Filtration Rate 106.7 mL/min (90-130); Glucose 104 mg/dL (65-115); HDL Cholesterol 56 mg/dL (60-100); LDL Cholesterol Calculated 176 mg/dL (50-129); LDL HDL Ratio 3.14 RATIO (0.00-3.22); Osmolality Calculated 284 mOsm/kg (285-295); Potassium 3.8 mmol/L (3.5-5.1); Sodium 136 mmol/L (136-145); Thyroid Stimulating Hormone 2.29 uIU/mL (0.27-4.20); Total Bilirubin 0.3 mg/dL (0.15-1.2); Total Protein 7.4 g/dL (6.6-8.7); Triglycerides 104 mg/dL (0-150)
== END 2023-12-18 07:39 | disposition home or self-care (01) ==
LOC: RAD 07:39
PROVIDERS: PCP Family Medicine; Visit Provider Family Medicine
DX: Z00.00 Encounter for general adult medical examination without abnormal findings (principal); Z12.31 Encounter for screening mammogram for malignant neoplasm of breast
CPT/HCPCS: 36415; 77063; 77067; 80053; 80061; 84443; 85025

== ENCOUNTER → 2024-12-23 07:29 | Outpatient (BNVA) | payer OTHER, SELFPAY | PROVIDERS: PCP Family Medicine; Visit Provider Family Medicine | DX: E87.6 Hypokalemia (principal) | CPT/HCPCS: 80048 ==